=== PATIENT | female | born 1995 | race Caucasian/White ===

== ENCOUNTER 2016-10-18 16:30 | Emergency (ER) | payer BC ==
[2016-10-18] MEDS ORDERED: NS 0.9% 1000 ML* 1,000 ML IV ONE (22:44)
[2016-10-18] MEDS ORDERED: Clindamycin 600 MG IVPREMIX(* 600 MG/50 ML SDV IV ONE (22:46)
[2016-10-18 23:20] LABS: Hematocrit 34 % (35-47); Mean Corpuscular HGB Conc 32 g/dl (31-36); Mean Corpuscular Hemoglobin 28 pg (27-31); Mean Corpuscular Volume 87 fL (80-97); Mean Platelet Volume 7 um3 (7.4-10.4); Red Blood Count 3.93 10^6/ul (4.0-5.4); Red Cell Distribution Width 15 % (10.5-15); White Blood Count 11.6 10^3/ul (3.5-10.8)
[2016-10-18] MEDS ORDERED: Ketorolac INJ* 30 MG/ML 1 ML VIAL IV PUSH ONE (23:24)
[2016-10-18 23:39] LABS: Albumin 3.9 g/dL (3.2-5.2); BUN/Creatinine Ratio 11.9 (8-20); Calcium 9.4 mg/dL (8.6-10.3); EGFR African American 142.9 (>60); EGFR Non-African American 111.1 (>60); Globulin 3.5 g/dL (2-4); Potassium 3.6 mmol/L (3.5-5.0); Total Bilirubin 0.4 mg/dL (0.2-1.0); Total Protein 7.4 g/dL (6.4-8.9)
--- NOTE | 2016-10-19 00:49 | ED ---
Skin Complaint - HPI Summary HPI Summary: 21 female presents with complaints of a sore red area in the center of her chest that has been on going for the past 3 days and worsening. Patient admits to some drainage, however it has stopped. She had had multiple abscess in the past with one having to be lanced. 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 She is currently a patient at [facility] and has been clean for ~1 month. Denies fever,chills, nausea, vomiting and lethargy. Admits to feeling ill. Area is very tender and warm to touch. States she has many wounds on her arms and skin that are chronic and from picking. Denies cardiac related chest pain and difficulty breathing/SOB. - History of Current Complaint Chief Complaint: EDGeneral Time Seen by Provider: 10/18/16 22:28 Stated Complaint: CHEST ABSCESS Hx Obtained From: Patient Onset/Duration: Started Days Ago Skin Exposure Onset/Duration: Days Ago Timing: Constant Onset Severity: Moderate Current Severity: Moderate Pain Intensity: 8 Pain Scale Used: 0-10 Numeric Skin Location: Discrete - mid sternum, between breasts Character: Swelling, Redness, Raised, Painful Aggravating Symptom(s): Nothing Alleviating Symptom(s): Treatment [employer]: - "popping it" Associated Signs & Symptoms: Rash - surrounding redness, Drainage - Allergy/Home Medications Allergies/Adverse Reactions: Allergies Allergy/AdvReac Type Severity Reaction Status Date / Time No Known Allergies Allergy Verified 10/18/16 23:46 PMH/Surg Hx/FS Hx/Imm Hx Endocrine/Hematology History: Denies: Hx Diabetes Cardiovascular History: Denies: Hx Hypertension Respiratory History: Reports: Hx Asthma Psychiatric History: Reports: Hx Substance Abuse - Surgical History Surgery Procedure, Year, and Place: none - Immunization History Immunizations Up to Date: Yes Infectious Disease History: No Infectious Disease History: Reports: Hx of Known/Suspected MRSA Denies: Traveled Outside the [place] in Last 30 Days - Family History Known Family History: Positive: Unknown - Social History Alcohol Use: Occasionally Substance Use Type: Reports: Cocaine, Heroin, Marijuana, Other - meth Smoking Status (MU): Former Smoker Review of Systems Constitutional: Negative Cardiovascular: Negative Respiratory: Negative Gastrointestinal: Negative Musculoskeletal: Negative Positive: Rash - abscess, center of chest All Other Systems Reviewed And Are Negative: Yes Physical Exam Triage Information Reviewed: Yes Vital Signs On Initial Exam: Initial Vitals Temp Pulse Resp BP Pulse Ox 97.6 F 109 20 112/71 98 10/18/16 16:54 10/18/16 16:54 10/18/16 16:54 10/18/16 16:54 10/18/16 16:54 tachycardia noted, patient states her heart "Always beats fast". Afebrile. Vital Signs Reviewed: Yes Appearance: Positive: Well-Appearing - patient talking on phone throughout exam and upon arrival, Well-Nourished, Pain Distress - mild Skin: Positive: Warm, Skin Color Reflects Adequate Perfusion, Dry, Erythema @ - mid sternum in between breasts, swelling, head of abscess present, no current drainage, surrounding erythema/cellulitis approximately 3cm in diameter surround head of abscess. abscess firm and non fluctuant or indurated. approximately 1.5cm in diameter., Other - chronic lesions/wounds from history of scratching due to IV drug use throughout skin, no other cellulitis or abscess present.. Negative: Cold, Numb, Cyanosis @, Diaphoretic Head/Face: Positive: Normal Head/Face Inspection Eyes: Positive: Normal, Conjunctiva Clear ENT: Positive: Normal ENT inspection, Hearing grossly normal, Pharynx normal, TMs normal Dental: Negative: Cervical Lymphadenopathy Neck: Positive: Supple, Nontender, No Lymphadenopathy Respiratory/Lung Sounds: Positive: Clear to Auscultation, Breath Sounds Present. Negative: Rales, Rhonchi, Wheezes Cardiovascular: Positive: Normal, RRR, Pulses are Symmetrical in both Upper and Lower Extremities, Tachycardia. Negative: Murmur, Rub Abdomen Description: Positive: Nontender, No Organomegaly, Soft Bowel Sounds: Positive: Present Musculoskeletal: Positive: Normal, Strength/ROM Intact Neurological: Positive: Normal, Sensory/Motor Intact, Alert, Oriented to Person Place, Time Psychiatric: Positive: Affect/Mood Appropriate AVPU Assessment: Alert Procedures - Incision and Drainage Site: mid sternum, chest Anesthesia: Other - LET Instrument(s): Needle - 20 gauge, aspiration ~ 1cc Diagnostics - Vital Signs Vital Signs Temp Pulse Resp BP Pulse Ox 10/18/16 20:32 97.2 F 122 24 122/84 98 10/18/16 19:40 97.2 F 134 122/84 98 10/18/16 18:22 97.8 F 117 20 130/78 97 10/18/16 16:54 97.6 F 109 20 112/71 98 - Laboratory Lab Results: Lab Results 10/18/16 10/18/16 10/18/16 Range/Units 23:08 23:08 23:35 WBC 11.6 H (3.5-10.8) 10^3/ul RBC 3.93 L (4.0-5.4) 10^6/ul Hgb 11.0 L (12.0-16.0) g/dl Hct 34 L (35-47) % MCV 87 (80-97) fL MCH 28 (27-31) pg MCHC 32 (31-36) g/dl RDW 15 (10.5-15) % Plt Count 242 (150-450) 10^3/ul MPV 7 L (7.4-10.4) um3 Neut % (Auto) 56.8 (38-83) % Lymph % (Auto) 33.0 (25-47) % [place] % (Auto) 9.6 H (1-9) % Eos % (Auto) 0.4 (0-6) % Baso % (Auto) 0.2 (0-2) % Absolute Neuts (auto) 6.6 (1.5-7.7) 10^3/ul Absolute Lymphs (auto) 3.8 (1.0-4.8) 10^3/ul Absolute Monos (auto) 1.1 H (0-0.8) 10^3/ul Absolute Eos (auto) 0 (0-0.6) 10^3/ul Absolute Basos (auto) 0 (0-0.2) 10^3/ul Absolute Nucleated RBC 0.01 10^3/ul Nucleated RBC % 0.1 Sodium 134 (133-145) mmol/L Potassium 3.6 (3.5-5.0) mmol/L Chloride 106 (101-111) mmol/L Carbon Dioxide 23 (22-32) mmol/L Anion Gap 5 (2-11) mmol/L BUN 8 (6-24) mg/dL Creatinine 0.67 (0.51-0.95) mg/dL Est GFR ( Amer) 142.9 (>60) Est GFR (Non-Af Amer) 111.1 (>60) BUN/Creatinine Ratio 11.9 (8-20) Glucose 75 (70-100) mg/dL Lactic Acid 0.7 (0.5-2.0) mmol/L Calcium 9.4 (8.6-10.3) mg/dL Total Bilirubin 0.40 (0.2-1.0) mg/dL AST 28 (13-39) U/L ALT 26 (7-52) U/L Alkaline Phosphatase 87 (34-104) U/L Total Protein 7.4 (6.4-8.9) g/dL Albumin 3.9 (3.2-5.2) g/dL Globulin 3.5 (2-4) g/dL Albumin/Globulin Ratio 1.1 (1-3) Beta HCG, Quant 0.98 mIU/mL Result Diagrams: 10/18/16 23:08 10/18/16 23:08 Lab Statement: Any lab studies that have been ordered have been reviewed, and results considered in the medical decision making process. - Ultrasound No standard instances Ultrasound Interpretation: Positive (See Comments) - subcutaneous edema noted. COmplex cutaneous fluid collection noted consider fine needels aspiration. 1.8 x 0.7 x 0.5cm dominant fluids pocket containing complex fluid. Course/Dx - Course Course Of Treatment: CBC, CMP and HCG preg due to patient preference obtained. Small white count noted. Slight anemia, not of concern. Given fluids and IV clindamycin.Toradol for pain and inflammation. U/S obtained and showed mutliple small fluid filled pockets with 1.25cm deep abscess. Attempted needle aspiration and removed ~1cc of purulent yellow/white discharge. Continue antibiotics at home along with ibuprofen. follow up with surgery as abscess may need to be opened. Due to area of abscess and depth, not comfortable preforming at this time. Aware of worsening signs and symptoms. No concern for sepsis. Follow up PCP. Fluids. - Differential Diagnoses - Skin Complaint Differential Diagnoses: Abscess, Cellulitis, Contact Dermatitis, Local Allergic Reaction, MRSA, Tinea, Urticaria, Other - Diagnoses Provider Diagnoses: Abscess or cellulitis of chest wall Discharge - Discharge Plan Condition: Stable Disposition: HOME Prescriptions: Clindamycin 300MG #4 CAP PREPK 300 mg PO QID #40 marco a Patient Education Materials: Cellulitis (ED), Abscess (ED), Warm Compress or Soak (ED) Referrals: Non Staff,Doctor [Primary Care Provider] - Mingo De La Rosa MD [Medical Doctor] - Additional Instructions: Take prescribed medication as directed for the next 10 days. 300mg 4 times a day for 10 days. Be sure to take probiotic pill or eat [place] yogurt in between doses to replenish good bacteria in your system. Apply warm compresses multiple times daily to area to help draw out discharge. Drink plenty of fluids. Follow up with surgery within the next 3 days for further evaluation and treatment. If symptoms worsen or do not improve, or you develop new symptoms such as fever/ chills, increasing redness or red streaks please return to ED immediately. Follow up with primary care provider.
[2016-10-19] MEDS ORDERED: Lidocaine/Epineph/Tetraca SOL* (LET solution) 4 ML BTL TOPICAL ONE (00:57)
[2016-10-19] MEDS ORDERED: Lidocaine/Epineph/Tetraca SOL* (LET solution) 4 ML BTL ONE (00:59)
[2016-10-19 03:17] VITALS: BP 97/63
--- NOTE | 2016-10-19 08:00 | RAD ---
Indication: Soft tissue erythema and edema. Real-time sonography of the chest was performed. Subcutaneous edema is noted. Hypoechoic fluid collections are noted in the subcutaneous tissues measuring 18 x 7 x 5 mm. A small abscess is not excluded. IMPRESSION: Diffuse subcutaneous edema with complex fluid collection as described above.
== END 2016-10-19 03:10 | disposition home or self-care (01) ==
LOC: ED 16:30
DX: L03.313 Cellulitis of chest wall (principal); J86.9 Pyothorax without fistula; R21 Rash and other nonspecific skin eruption; Z87.891 Personal history of nicotine dependence
CPT/HCPCS: 36415; 76536; 80053; 83605; 84702; 85025; 96374; 99282; J1885

== ENCOUNTER 2016-10-19 23:13 | Emergency (ER) | payer BC ==
[2016-10-20] MEDS ORDERED: Clindamycin 600 MG IVPREMIX(* 600 MG/50 ML SDV IV ONE (00:53)
[2016-10-20] MEDS ORDERED: NS 0.9% 1000 ML* 1,000 ML IV ONE (00:53)
--- NOTE | 2016-10-20 00:59 | ED ---
Skin Complaint - HPI Summary HPI Summary: 21 female presents to ED with complaints of worsening symptoms of mid sternal chest abscess since being seen yesterday in ED. Patient is in [facility] and states she was unable to take her antibiotic until 8:30pm today. She feels as though the infection is spreading and has been worsening. States the redness has increased and described red streaking earlier that has since resolved. Is a recovering IV drug user with history of MRSA and abscesses. Has not used in months. Denies any pain management. Denies known fever/chills. Admits to it draining. - History of Current Complaint Chief Complaint: EDRashSkinAbscess Time Seen by Provider: 10/19/16 23:37 Stated Complaint: SKIN INFECTION Hx Obtained From: Patient Onset/Duration: Started Days Ago, Still Present, Worse Since Skin Exposure Onset/Duration: Days Ago Timing: Constant Current Severity: Moderate Pain Intensity: 8 Pain Scale Used: 0-10 Numeric Skin Location: Chest - mid sternum Aggravating Symptom(s): Nothing Alleviating Symptom(s): Nothing Associated Signs & Symptoms: Drainage, Red Streaks - subjective - Allergy/Home Medications Allergies/Adverse Reactions: Allergies Allergy/AdvReac Type Severity Reaction Status Date / Time Amoxicillin Allergy Rash Verified 10/20/16 00:08 PMH/Surg Hx/FS Hx/Imm Hx Endocrine/Hematology History: Reports: Other Endocrine/Hematological Disorders - hepatitis c Denies: Hx Diabetes Cardiovascular History: Denies: Hx Hypertension Respiratory History: Reports: Hx Asthma Psychiatric History: Reports: Hx Substance Abuse - Surgical History Surgery Procedure, Year, and Place: none - Immunization History Immunizations Up to Date: Yes Infectious Disease History: No Infectious Disease History: Reports: Hx of Known/Suspected MRSA Denies: Traveled Outside the [place] in Last 30 Days - Family History Known Family History: Positive: Unknown - Social History Alcohol Use: Occasionally Substance Use Type: Reports: Cocaine, Heroin, Marijuana, Other Smoking Status (MU): Former Smoker Review of Systems Constitutional: Negative Cardiovascular: Negative Respiratory: Negative Musculoskeletal: Negative Positive: Other - cellulitis and abscess All Other Systems Reviewed And Are Negative: Yes Physical Exam Triage Information Reviewed: Yes Vital Signs On Initial Exam: Initial Vitals Temp Pulse Resp BP Pulse Ox 98.0 F 110 22 93/52 98 10/19/16 23:16 10/19/16 23:16 10/19/16 23:16 10/19/16 23:16 10/19/16 23:16 tachycardia and bp noted, normal range when compared. Vital Signs Reviewed: Yes Appearance: Positive: Well-Appearing, No Pain Distress, Well-Nourished Skin: Positive: Warm, Skin Color Reflects Adequate Perfusion, Dry, Erythema @ - mid sternal chest in between breast apprximately 7 cm in diameter appears to have increased slightly since yesterday. firm non functant non indurated area of mid sternum, and into left medial breast.warm to touch. some discharge, clear /yellow purlent at head of abscess/opening- minimal Head/Face: Positive: Normal Head/Face Inspection Eyes: Positive: Normal, Conjunctiva Clear ENT: Positive: Hearing grossly normal Neck: Positive: Supple, Nontender, No Lymphadenopathy Respiratory/Lung Sounds: Positive: Clear to Auscultation, Breath Sounds Present. Negative: Rales, Rhonchi, Wheezes Cardiovascular: Positive: Normal, RRR, Pulses are Symmetrical in both Upper and Lower Extremities. Negative: Murmur, Rub Abdomen Description: Positive: Nontender, Soft Bowel Sounds: Positive: Present Musculoskeletal: Positive: Normal, Strength/ROM Intact Neurological: Positive: Normal, Sensory/Motor Intact, Alert, Oriented to Person Place, Time Psychiatric: Positive: Affect/Mood Appropriate AVPU Assessment: Alert - [place] Coma Scale Coma Scale Total: 15 Diagnostics - Vital Signs Vital Signs Temp Pulse Resp BP Pulse Ox 10/20/16 00:04 97.2 F 99 18 96/57 96 10/19/16 23:16 98.0 F 110 22 93/52 98 - Laboratory Result Diagrams: 10/20/16 02:00 Lab Statement: Any lab studies that have been ordered have been reviewed, and results considered in the medical decision making process. Course/Dx - Course Course Of Treatment: culture obtained from drainage. given IV clindamycin dose and fluids while in ED. Repeat CBC due to PE findings slightly worsening and with history. Also due to not taking appropriate medication as directed. spoke with Dr Harmon about patient plan and course of treatment. WBC has decreased since yesterday. Patient is also menstruating which explains her low H&H. recommended taking iron pills or eating iron rich foods. continue clindamycin at home as directed. follow up with surgeon on Saturday. Aware of worsening signs and symptoms to watch out for and when to return. - Differential Diagnoses - Skin Complaint Differential Diagnoses: Abscess, Cellulitis, Contact Dermatitis, MRSA - Diagnoses Provider Diagnoses: Abscess or cellulitis of chest wall Discharge - Discharge Plan Condition: Stable Disposition: HOME Patient Education Materials: Abscess (ED), Cellulitis (ED) Referrals: Non Staff,Doctor [Primary Care Provider] - Additional Instructions: Take prescribed medication as directed for the next 10 days. 300mg 4 times a day for 10 days. Be sure to take probiotic pill or eat [place] yogurt in between doses to replenish good bacteria in your system. Apply warm compresses multiple times daily to area to help draw out discharge. Drink plenty of fluids. Follow up with surgery within the next 3 days for further evaluation and treatment. If symptoms worsen or do not improve, or you develop new symptoms such as fever/ chills, increasing redness or red streaks please return to ED immediately. Follow up with primary care provider.
[2016-10-20 02:12] LABS: Hematocrit 32 % (35-47); Hemoglobin 10.2 g/dl (12.0-16.0); Mean Corpuscular HGB Conc 32 g/dl (31-36); Mean Corpuscular Hemoglobin 28 pg (27-31); Mean Corpuscular Volume 87 fL (80-97); Mean Platelet Volume 7 um3 (7.4-10.4); Red Blood Count 3.65 10^6/ul (4.0-5.4); Red Cell Distribution Width 15 % (10.5-15)
[2016-10-20 02:14] LABS: Add Diff/Slide Review? Slide Review Added; Comments Flag Yes
[2016-10-20 04:00] VITALS: BP 95/62
--- NOTE | 2016-10-21 09:03 | ED ---
Progress - Progress Note Progress Note: Wound cx + for MRSA and staph aureus - she was started on clindamycin ( appropriate tx). Will forward to medical staff at [facility] as pt has no PCP listed. modesta Lemus, aware. Course/Dx - Course Course Of Treatment: culture obtained from drainage. given IV clindamycin dose and fluids while in ED. Repeat CBC due to PE findings slightly worsening and with history. Also due to not taking appropriate medication as directed. spoke with Dr Harmon about patient plan and course of treatment. WBC has decreased since yesterday. Patient is also menstruating which explains her low H&H. recommended taking iron pills or eating iron rich foods. continue clindamycin at home as directed. follow up with surgeon on Saturday. Aware of worsening signs and symptoms to watch out for and when to return. - Diagnoses Provider Diagnoses: Abscess or cellulitis of chest wall
== END 2016-10-20 04:39 | disposition home or self-care (01) ==
LOC: ED 23:13
DX: L02.213 Cutaneous abscess of chest wall (principal); Z86.14 Personal history of Methicillin resistant Staphylococcus aureus infection; Z86.19 Personal history of other infectious and parasitic diseases; J45.909 Unspecified asthma, uncomplicated; Z88.1 Allergy status to other antibiotic agents; Z87.898 Personal history of other specified conditions; Z87.891 Personal history of nicotine dependence
CPT/HCPCS: 36415; 85025; 86141; 87070; 87077; 87186; 87205; 87640; 87641; 96365; 99283